=== PATIENT | female | born 1975 | race Asian ===

== ENCOUNTER 2022-07-31 14:25 | Emergency (ER) | payer OTHER, BC ==
[~2022-07-31] VITALS: Ht 165.1 cm; Wt 86.2 kg
[2022-07-31 14:25] VITALS: BP_SYST 130
--- NOTE | 2022-07-31 14:30 | NUR ---
Patient triaged and placed in waiting room. VSS and patient appears in no acute distress at this time. Accompanied by SELF, awaiting available bed, and MD notified of need for MSE.
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
--- NOTE | 2022-07-31 15:01 | NUR ---
DR MITCHELL TO TRIAGE ROOM TO EVALUATE PT.
[2022-07-31] MEDS ORDERED: NAPR-1172 PO (15:33)
--- NOTE | 2022-07-31 15:35 | NUR ---
Patient given written and verbal discharge instructions and verbalizes understanding. ER MD discussed with patient the results and treatment provided. Patient in stable condition. ID arm band removed. Rx of NAPROXEN given. Patient educated on pain management and to follow up with PMD. Pain Scale 0/10. Opportunity for questions provided and answered. Medication side effect fact sheet provided.
[2022-07-31] MEDS ORDERED: ONDA-8 TL (15:37)
--- NOTE | 2022-07-31 15:59 | NUR ---
Note undone in EDM - 07/31/22 at 1600 by MARSHA Patient given written and verbal discharge instructions and verbalizes understanding. ER discussed with patient the results and treatment provided. Patient in stable condition. ID arm band removed. Rx of NAPROXEN given. Patient educated on pain management and to follow up with PMD. Pain Scale 0/10. Opportunity for questions provided and answered. Medication side effect fact sheet provided.
== END 2022-07-31 15:35 | disposition home or self-care (01) ==
LOC: SED 14:25
DX: R07.89 Other chest pain (principal); R51.9 Headache, unspecified; J45.909 Unspecified asthma, uncomplicated; Z88.0 Allergy status to penicillin; Z88.1 Allergy status to other antibiotic agents; Z79.899 Other long term (current) drug therapy; V89.2XXA Person injured in unspecified motor-vehicle accident, traffic, initial encounter; Y93.89 Activity, other specified; Y92.89 Other specified places as the place of occurrence of the external cause; Y99.8 Other external cause status
CPT/HCPCS: 71045; 99283